=== PATIENT | female | born 1980 | race American Indian/Alaskan Native ===

== ENCOUNTER 2016-03-01 22:50 | Emergency (ER) | payer MEDICARE ==
[2016-03-02 00:54] LABS: Basophils % (Auto) 0.3 % (0.0-1.8); Eosinophils % (Auto) 0.5 % (0.0-4.3); Hemoglobin 13.8 gm/dl (10.1-14.3); Mean Corpuscular HGB Conc 34 % (30-34); Mean Corpuscular Hemoglobin 30 pg (28-32); Mean Corpuscular Volume 89 fl (79-97); Platelet Count 254 K/mm3 (140-440); Red Cell Distribution Width 15.1 % (13.2-15.2); White Blood Count 7.9 K/mm3 (4.5-11.0)
[2016-03-02 01:12] LABS: Anion Gap 18 mmol/L; Blood Urea Nitrogen 12 mg/dL (7-17); Calcium 9.3 mg/dL (8.4-10.2); Carbon Dioxide 29 mmol/L (22-30); Chloride 98.8 mmol/L (98-107); Glucose 118 mg/dL (65-100); Potassium 4.2 mmol/L (3.6-5.0); Sodium 142 mmol/L (137-145)
[2016-03-02] MEDS ORDERED: NACL 0.9% 1000 ML IV ONE (10:57)
[2016-03-02] MEDS ORDERED: NACL ONE (11:01)
--- NOTE | 2016-03-02 11:04 | Emergency Department Report ---
HPI - General Chief Complaint: Syncope Time Seen by Provider: 03/02/16 10:47 - HPI HPI: Chief complaint: Syncope, headache, chest pain HPI: Patient is 35-year-old female status post Hodgkin's lymphoma who is in remission. Last chemoradiation was 2 years ago. Patient was at a [employer] last night and states she felt hot when out on the back porch to cool off and felt dizzy when she stood up and fell back and hit the back of her head. Patient's mother states she gets dizzy every time she stands up. Patient states she also has some left chest pain just lateral to her breast and under the axillary area after the fall. No shortness of breath. Patient complains of a severe headache but has a history of migraines. States she still feels dizzy when she sits up. No cough or cold or fever no melena. Patient has a power port in her right chest. Mode of arrival: private car Source: Patient and patient's mother Began: Occurred last night about 10:00 Duration: 20 seconds Context: See above Quality: Throbbing Severity: 10 out of 10 Improved with: Laying down Worsened with: Standing up Associated signs and symptoms: See above ED Past Medical Hx - Past Medical History Hx Hypertension: No Hx of Cancer: Yes (lymph nodes) Hx Arthritis: Yes (SPINE) Hx Headaches / Migraines: Yes (MIGRAINE) Hx HIV: No Additional medical history: HODGSKINS DISEASE - Surgical History Hx Appendectomy: Yes Hx Breast Surgery: No (REMOVAL OF RIGHT SUPRACLAVICULAR FAT PAD W/LYMPNODES 5-12 -15) Additional Surgical History: PORT rt upper chest, C/S,NECK BIOPSY. Tubal ligation - Social History Smoking Status: Never Smoker Substance Use Type: Alcohol - Medications Home Medications: Home Medications Medication Instructions Recorded Confirmed Last Taken Type ALBUTEROL Inhaler [Proair] 2 puff IH QID PRN 02/19/16 02/19/16 Unknown History ED Review of Systems ROS: Stated complaint: FALL Other details as noted in HPI ROS Constitutional: No fever ENT: No uri symptoms Cardiovascular: chest pain Respiratory: No sob or cough GI: No nausea vomiting or diarrhea : No dysuria frequency or urgency, Skin: No rash Neuro: No focal weakness or numbness Psych: No depression Lc/lymph: No edema Physical Exam - Physical Exam Vital Signs: Vital Signs 03/01/16 03/02/16 03/02/16 23:56 05:25 10:43 Temperature 97.4 F L 97.9 F Pulse Rate 60 62 Respiratory 18 18 18 Rate Blood Pressure 113/74 104/74 O2 Sat by Pulse 99 97 97 Oximetry Physical Exam: GENERAL: The patient is well-developed well-nourished . Patient felt dizzy when she sat up for her exam and repeat blood pressure was systolic of 139 which was higher than when she was laying down. Patient states the dizziness sometimes it is vertigo. HEENT: Normocephalic. Atraumatic. Extraocular motions are intact. Patient has moist mucous membranes. No nystagmus NECK: Supple. No meningitic signs are noted. There is no adenopathy noted. CHEST/LUNGS: Clear to auscultation. There is no respiratory distress noted. HEART/CARDIOVASCULAR: Regular. There is no tachycardia. There is no gallop rub or murmur. ABDOMEN: Abdomen is soft, nontender. Patient has normal bowel sounds. There is no abdominal distention. SKIN: There is no rash. There is no edema. There is no diaphoresis. NEURO: The patient is awake, alert, and oriented. The patient is cooperative. The patient has no focal neurologic deficits. The patient has normal speech. MUSCULOSKELETAL: There is no tenderness or deformity. There is no limitation range of motion. There is no evidence of acute injury. ED Course Vital Signs 03/01/16 03/02/16 03/02/16 23:56 05:25 10:43 Temperature 97.4 F L 97.9 F Pulse Rate 60 62 Respiratory 18 18 18 Rate Blood Pressure 113/74 104/74 O2 Sat by Pulse 99 97 97 Oximetry - Reevaluation(s) Reevaluation #1: 03/02/16 Patient given a liter of normal saline and orthostatic vital signs within normal limits. Patient states she still feels lightheaded on standing. Will have patient follow up with her primary care doctor tomorrow. ED Medical Decision Making - Lab Data Result diagrams: 03/02/16 00:35 03/02/16 00:35 Laboratory Tests 03/02/16 03/02/16 03/02/16 00:35 03:22 06:35 Troponin T < 0.010 < 0.010 < 0.010 - EKG Data -: EKG Interpreted by Me EKG shows normal: sinus rhythm Rate: normal (69) - EKG Data When compared to previous EKG there are: no significant change Interpretation: normal EKG - Radiology Data Radiology results: report reviewed (CT of the head within normal limits. CTA of the chest within normal limits.) Critical care attestation.: If time is entered above; I have spent that time in minutes in the direct care of this critically ill patient, excluding procedure time. ED Disposition Clinical Impression: Vasovagal syncope Migraine headache Qualifiers: Migraine type: unspecified Status migrainosus presence: without status migrainosus Intractability: not intractable Qualified Code(s): G43.909 - Migraine, unspecified, not intractable, without status migrainosus Disposition: DISCHARGED TO HOME OR SELFCARE Is pt being admited?: No Does the pt Need Aspirin: No Condition: Stable Instructions: Syncope (ED) Referrals: MILES MILES MD [Primary Care Provider] - 24 Hours Time of Disposition: 12:45
--- NOTE | 2016-03-02 11:41 | Cat Scan Report ---
CT scan of head without contrast: History: Headache, syncope. Findings: The ventricles are normal in size and midline in location. No evidence of acute ischemia, hemorrhage or mass. No extra-axial fluid collection. Normal brainstem and cerebellum. Normal sinuses and mastoid air cells. Impression: Essentially negative CT scan of head.
--- NOTE | 2016-03-02 11:44 | Cat Scan Report ---
CTA chest: History: History of lymphoma status post treatment. Syncope. Findings: No evidence of aortic aneurysm or pulmonary embolism. No evidence of pleural or pericardial effusion. No mediastinal mass or adenopathy. Normal lung parenchyma. No discrete nodularity or calcification. Impression: Essentially negative CTA of chest.
[2016-03-02 13:13] VITALS: BP 121/80
== END 2016-03-02 13:49 | disposition home or self-care (01) ==
LOC: ED 22:50
DX: G43.909 Migraine, unspecified, not intractable, without status migrainosus (principal); R55 Syncope and collapse; I10 Essential (primary) hypertension; Z85.89 Personal history of malignant neoplasm of other organs and systems
CPT/HCPCS: 36415; 70450; 71275; 80048; 81025; 84484; 85025; 85379; 93005; 93010; 96360; 96375; 99285; J7030; Q9967; 96361; 96374

== ENCOUNTER 2016-03-11 11:32 | Day surgery (SDC) | payer MEDICAID, MEDICARE ==
[2016-03-11] MEDS ORDERED: SUBLIMAZE ONE (12:27)
[2016-03-11] MEDS ORDERED: DIPRIVAN 10 MG/ML IV ONE (12:27)
[2016-03-11] MEDS ORDERED: XYLOCAINE MPF 2% ONE (12:27)
--- NOTE | 2016-03-11 12:28 | Anesthesia Consultation ---
Anesthesia Consult and Med Hx Date of service: 03/11/16 - Airway Anesthetic Teeth Evaluation: Good ROM Head & Neck: Adequate Mental/Hyoid Distance: Adequate Mallampati Class: Class II Intubation Access Assessment: Probably Good - Pulmonary Exam CTA: Yes - Cardiac Exam Cardiac Exam: RRR - Pre-Operative Health Status ASA Pre-Surgery Classification: ASA2 Proposed Anesthetic Plan: General - Pulmonary Hx Smoking: Yes (CIGARETTES 1/2 PPD x 16 yrs, quit 10/2013) SOB: Yes - Cardiovascular System Hx Hypertension: No Hx Coronary Artery Disease: No - Central Nervous System Hx Psychiatric Problems: No - Gastrointestinal Hx Gastroesophageal Reflux Disease: No - Endocrine Hx Non-Insulin Dependent Diabetes: No Hx Thyroid Disease: No - Hematic Hx Anemia: Yes (DURING CHEMO TX) - Other Systems Hx Alcohol Use: Yes (OCCAS WINE) Hx Cancer: Yes (HODGKINS LYMPHOMA , LAST CHEMO 06/2014 & RADIATION 09/2014)
--- NOTE | 2016-03-11 12:29 | Anesthesia Day of Surgery ---
Anesthesia Day of Surgery - Day of Surgery Patient Examined: Yes Patient H&P Reviewed: Yes Patient is NPO: Yes
[2016-03-11] MEDS ORDERED: PEPCID PO NR (13:00)
[2016-03-11] MEDS ORDERED: NACL 0.9% 1000 ML 1,000 ML IV SCH (13:00)
[2016-03-11] MEDS ORDERED: VANCOMYCIN/NS 1 GM/250 ML 250 ML IV NR (13:00)
[2016-03-11] MEDS ORDERED: VERSED IV NR (13:00)
[2016-03-11] MEDS ORDERED: NACL 0.9% IR ONE (13:16)
[2016-03-11] MEDS ORDERED: ZOFRAN ONE (13:22)
--- NOTE | 2016-03-11 13:34 | Discharge Summary ---
Short Stay Discharge Plan Weight Bearing Status: Full Weight Bearing Diet: low fat Wound: per your surgeon's advice
--- NOTE | 2016-03-11 14:06 | Post Anesthesia Evaluation ---
- Post Anesthesia Evaluation Patient Participated: Yes Airway Patent: Yes Stable Respiratory Function: Yes Nausea/Vomiting: No Temp > 96.8F: Yes Pain Manageable: Yes Adequeate Hydration: Yes Anesthesia Complications: No Block Receding Appropriately: Not Applicable Patient on Ventilator: No
[2016-03-11] MEDS ORDERED: NORCO 5/325 PO PRN (14:22)
[2016-03-11 14:54] VITALS: BP 121/70
--- NOTE | 2016-03-11 18:35 | Operative Report ---
PREOPERATIVE DIAGNOSIS: Hodgkin's lymphoma, for removal of subcutaneous port. POSTOPERATIVE DIAGNOSIS: Hodgkin's lymphoma, for removal of subcutaneous port. PROCEDURE: Removal of subcutaneous port. ANESTHESIA: General. BLOOD LOSS: Minimal. FINDINGS: The patient had a port in the right upper chest. That is about 2 x 2 cm and this was removed in toto with the tubing as well. DESCRIPTION OF PROCEDURE: With the patient in the supine position, ____ prepped and draped in usual fashion. I made an incision over the deep subcutaneous tissue. I was able to get hold of the tube itself between 2 Hemo clamps, I was able to remove the tubing and then the port was removed in toto using electrocautery. The wound was then closed in layers. I used 3-0 Vicryl for the subcutaneous tissue and skin with 4-0 Vicryl and bandage. The patient was then transferred to the recovery room in good condition. JOB# [id number] ATIYA/GAEL
--- NOTE | 2016-03-11 18:46 | Discharge Summary ---
HOSPITAL COURSE: This patient is a well-known case of Hodgkin's disease. She had a port inserted about 9 months ago. She came to me to have it taken out. She has been under the care of Dr. WARE__. So under general anesthesia, I was able to remove the port. Postop, she did extremely well. She was discharged home within 2 hours after the operation to call me or to see me in the office in about 10 days. I talked to her mom. The patient may take extra strength Tylenol. JOB# [id number] ATIYA/GAEL HOLM
== END 2016-03-11 14:55 | disposition home or self-care (01) ==
LOC: OR 11:32
PROVIDERS: ATTEND Surgery
DX: Z45.2 Encounter for adjustment and management of vascular access device (principal); C85.90 Non-Hodgkin lymphoma, unspecified, unspecified site; D64.81 Anemia due to antineoplastic chemotherapy; Z87.891 Personal history of nicotine dependence; Z72.89 Other problems related to lifestyle; M19.90 Unspecified osteoarthritis, unspecified site; Z98.51 Tubal ligation status
CPT/HCPCS: 36590; 81025; J2250; J2405; J2704; J3010; J3370; J7030

== ENCOUNTER 2017-02-11 13:25 | Outpatient (CLI) | payer MEDICAID, MEDICARE ==
[2017-02-11 14:32] LABS: Blood Urea Nitrogen 12 mg/dL (7-17)
--- NOTE | 2017-02-11 17:30 | Cat Scan Report ---
FINAL REPORT EXAM: CT CHEST W CON HISTORY: LYMPHOMA TECHNIQUE: CT examination of the chest after IV contrast PRIORS: 03/07/2015 FINDINGS: Normal cardiac size without pericardial effusion. Intact normal caliber thoracic aorta. Normal-appearing esophagus. No evidence of hilar mass or mediastinal adenopathy. No axillary adenopathy. The visible pulmonary arteries are diffusely patent bilaterally. No pneumothorax or pleural effusion. No focal pulmonary consolidation. Small calcified granuloma in the left lower lobe. No definite lung mass or noncalcified pulmonary nodule. IMPRESSION: No CT evidence of acute cardiopulmonary disease or mass
--- NOTE | 2017-02-11 17:46 | Cat Scan Report ---
FINAL REPORT EXAM: CT ABDOMEN PELVIS W CON HISTORY: LYMPHOMA TECHNIQUE: CT examination of the ABDOMEN after IV contrast CT examination of the PELVIS after IV contrast PRIORS: Chest CT 03/07/2015 FINDINGS: Calcified granuloma left lower lobe. Slight liver enlargement with 18.0 cm sagittal dimension. No focal liver lesion. Normal-appearing gallbladder, adrenals, pancreas, and spleen. Intact normal caliber abdominal aorta and IVC. No evidence of retroperitoneal adenopathy. No definite inguinal adenopathy. No definite mesenteric mass. Very small fat containing umbilical hernia. Normal-appearing stomach and duodenum. No small bowel distention in the abdomen and pelvis. Normal-appearing kidneys and ureters. No pelvic free fluid. Normal-appearing urinary bladder, rectum, sigmoid colon, uterus, and adnexa. Nonspecific small 20 mm cyst in right ovary may be the dominant follicle. No gross ascites, free air, or colonic distention. Normal-appearing cecum and terminal ileum. Appendix not visualized. No pericecal inflammation. No definite mass, adenopathy, or abnormal fluid collection. IMPRESSION: Slight hepatomegaly without focal liver lesion Small cyst in region of right ovary may be a dominant follicle
--- NOTE | 2017-02-11 18:01 | Cat Scan Report ---
FINAL REPORT EXAM: CT NECK W CON HISTORY: LYMPHOMA TECHNIQUE: CT examination of the neck with IV contrast PRIORS: None. FINDINGS: Visualized brain: No focal abnormality Visualized lung apices: No focal abnormality Cervical spine: Multilevel slight degenerative change Paranasal sinuses: Clear Torus tubaris: No focal abnormality Fossa of Rosenmuller: No focal abnormality Vallecula: No focal abnormality Piriform sinus: No focal abnormality Epiglottis: No focal abnormality Vocal cord region: No focal abnormality Parapharyngeal fat planes: No focal abnormality Parotid and submandibular glands: No focal abnormality Thyroid: No focal abnormality Vessels: No focal abnormality Lymph nodes: No focal abnormality or gross enlargement Abnormal fluid collection to suggest abscess: None IMPRESSION: No CT evidence of acute pathology or mass
== END 2017-02-11 13:26 | disposition home or self-care (01) ==
LOC: CT 13:25
DX: C85.88 Other specified types of non-Hodgkin lymphoma, lymph nodes of multiple sites (principal); J84.10 Pulmonary fibrosis, unspecified; K42.9 Umbilical hernia without obstruction or gangrene; N83.201 Unspecified ovarian cyst, right side; M47.892 Other spondylosis, cervical region; R16.0 Hepatomegaly, not elsewhere classified; Z87.891 Personal history of nicotine dependence
CPT/HCPCS: 36415; 70491; 71260; 74177; 82565; 84520; Q9967